=== PATIENT | male | born 1975 | race Caucasian/White ===

== ENCOUNTER 2021-06-29 08:56 | Emergency (ER) | payer OTHER, MEDICAID, SELFPAY ==
[2021-06-29 09:08] VITALS: BP 141/89; PULSE 85; O2SAT 99
[2021-06-29 09:23] VITALS: BP 141/89; PULSE 83; RESP 18; TEMP 36.4; O2SAT 100
--- NOTE | 2021-06-29 09:23 | ED.EXTPRO ---
HPI - Extremity Problem General Chief complaint: Extremity Problem,Nontraumatic Stated complaint: Swelling/pain in left hand Time Seen by Provider: 06/29/21 09:03 History of Present Illness HPI Narrative: Patient is a 45-year-old male presenting with left hand pain and swelling. 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 He has been shoveling, he was able to shovel yesterday and today but leave noticed that his left hand has become more painful the base of his left middle finger on the palmar side hurts. He does have a scar in the middle of his left palm which he states is a cigarette that he put out there. That actually seems to be healed. He denies any fevers chills. He states that he is ambidextrous. He uses both hands. Related Data Previous Rx's Medication Instructions Recorded cefdinir 300 mg capsule 300 mg PO Q12H #20 cap 06/29/21 sulfamethoxazole 800 1 tab PO BID 10 Days #20 tab 06/29/21 mg-trimethoprim 160 mg tablet (Bactrim DS) Allergies Allergy/AdvReac Type Severity Reaction Status Date / Time No Known Drug Allergies Allergy Verified 06/29/21 09:57 Review of Systems Review of Systems Narrative: GENERAL: Denies chills,fever HEENT: Denies throat pain RESPIRATORY: Denies dyspnea, cough, wheezing CARDIOVASCULAR: Denies chest pain, palpitations GASTROINTESTINAL: Denies nausea, vomiting MUSCULOSKELETAL: Denies extremity pain, injury SKIN: See HPI NEUROLOGIC: Denies weakness, dizziness, headache, numbness 8 point review of systems is negative except for those stated above and HPI Patient History Social History Smoking Status: Current every day smoker Exam Initial Vital Signs Initial Vital Signs: Vital Signs Pulse Rate 85 06/29/21 09:08 Blood Pressure 141/89 H 06/29/21 09:08 Pulse Oximetry 99 06/29/21 09:08 GENERAL: Anxious 45-year-old male CARDIOVASCULAR: peripheral pulses in tact, cap refill <2 sec RESPIRATORY: No respiratory distress, speaks in full sentences without difficulty EXTREMITIES: Normal range of motion, no clubbing or edema. Neurovascularly intact NEUROLOGICAL: Cranial nerves II through XII grossly intact. Normal gait and speech. SKIN: Left hand mild erythema dorsal side significantly tender at base left middle finger on the flexor palmar side is no abscess or fluctuation appreciated but mild swelling is noted. he is able to flex and extend all fingers middle finger is mildly limited however still able to flex at PIP and DIP and MCP although MCP range of motion is quite limited. Scar noted in the center of the palm which is healed. Course Orders Ordered: ED Orders 06/29/21 09:33 COVID19 -Nasal swab/Pre-Proc Stat Discontinued Medications Olanzapine (Olanzapine Odt 10 Mg Tab) 10 mg PO NOW ONE Stop: 06/29/21 09:48 Vital Signs Vital signs: Vital Signs - 8 hr 06/29/21 09:08 06/29/21 09:23 06/29/21 09:30 Temperature 97.5 F L Pulse Rate 85 83 83 Respiratory Rate 18 Blood Pressure 141/89 H 141/89 H Pulse Oximetry 99 100 100 MDM - Extremity (Nontraumatic) Lab Data Labs: Lab Results 06/29/21 Range/Units 09:33 SARS-CoV-2 (PCR) Negative (Negative) MDM Narrative Medical decision making narrative: Does not use IV drugs but does have substance abuse issues. Concern for developing infection. and certainly possible very early flexor tenosynovitis. He currently is able to flex extend his his fingers. However base of the left 3rd middle finger it is mildly erythematous and swollen no obvious abscess at this time. His given prescription for cefdinir and Bactrim. He is afebrile Discharge Plan Departure Patient Disposition: Home Clinical Impression: Cellulitis Instructions: DI for Cellulitis -- Adult Activity Restrictions/Additional Instructions: *You have been diagnosed with left hand cellulitis *What to do: Please monitor very closely. Her finger could get significantly worse however I think this is caught very early *Continue to take medications as directed Bactrim 1 tablet twice a day for 10 days Cefdinir 300 mg twice a day for 10 days *Follow up with your primary care provider in 2-3 days or call [phone] *Return to ER if you should have redness, finger swelling, inability to bend finger, increasing pain or any new, worsening or concerning symptoms Prescriptions: New cefdinir 300 mg capsule 300 mg PO Q12H Qty: 20 0RF sulfamethoxazole-trimethoprim [Bactrim DS] 800-160 mg tablet 1 tab PO BID 10 Days Qty: 20 0RF
[2021-06-29 09:30] VITALS: PULSE 83; O2SAT 100
[2021-06-29 09:59] LABS: COVID19 -Nasal RAPID Negative (Negative)
== END 2021-06-29 10:02 | disposition home or self-care (01) ==
PROVIDERS: Emergency Provider Emergency Medicine
DX: L03.114 Cellulitis of left upper limb (principal); F17.200 Nicotine dependence, unspecified, uncomplicated; Z20.822 Contact with and (suspected) exposure to COVID-19
CPT/HCPCS: 87635; 99283; C9803